=== PATIENT | female | born 1990 | race American Indian/Alaskan Native ===

== ENCOUNTER 2017-02-18 16:48 | Emergency (ER) | payer SELFPAY ==
[2017-02-18 16:56] VITALS: BP 149/76; PULSE 72; TEMP 98; BMI 26.7
--- NOTE | 2017-02-18 17:29 | PDOC ---
History of Present Illness - General Chief Complaint: Pain Stated Complaint: PAIN Time Seen by Provider: 02/18/17 17:12 History Source: Patient Exam Limitations: No Limitations - History of Present Illness Initial Comments: 02/18/17 17:23 CC now painful bump to right wrsit x 1 yuears; also infection ingrown hair left arm x 2 days Timing/Duration: getting worse Severity: mild Associated Symptoms: denies: cough, fever/chills, nausea/vomiting Past History - Past Medical History Allergies/Adverse Reactions: Allergies Allergy/AdvReac Type Severity Reaction Status Date / Time No Known Allergies Allergy Verified 02/18/17 16:54 Home Medications: Ambulatory Orders NK [No Known Home Medication] 02/18/17 Suicide Attempt (Hx): No Other medical history: DENIES. - Psycho/Social/Smoking Cessation Hx Anxiety: No Suicidal Ideation: No Smoking History: Never smoked Hx Alcohol Use: Yes Drug/Substance Use Hx: No Substance Use Type: Alcohol Review of Systems - Review of Systems Constitutional: No: Chills, Fever, Malaise HEENTM: Yes: Symptoms Reported Respiratory: Yes: Symptoms reported, Cough Integumentary: Yes: Lesions (left upper forearm), Lumps (right wrist) *Physical Exam - Vital Signs Last Vital Signs Temp Pulse Resp BP Pulse Ox 98 F 72 18 149/76 99 02/18/17 16:54 02/18/17 16:54 02/18/17 16:54 02/18/17 16:54 02/18/17 16:54 - Physical Exam General Appearance: Yes: Appropriately Dressed. No: Apparent Distress HEENT: positive: TMs Normal, Pharynx Normal Neck: positive: Supple. 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 negative: Sensory Deficit Medical Decision Making - Medical Decision Making 02/18/17 17:28 will treat left arm lesion as cellulitis with bactrim; will refer to plastic for evaluation of ganglion cyst *DC/Admit/Observation/Transfer Diagnosis at time of Disposition: Ganglion cyst of dorsum of right wrist, Cellulitis of left upper extremity - Discharge Dispostion Disposition: HOME Condition at time of disposition: Stable Admit: No - Referrals Referrals: Radames Briscoe [Primary Care Provider] - Darryl Power MD [Staff Physician] - - Patient Instructions Additional Instructions: see plastic surgeon for ganglion cyst right wrist; warm soaks to left arm infection, start Bactrim; wound check 2-3 days
== END 2017-02-18 17:41 | disposition home or self-care (01) ==
LOC: JERFT 16:48 → SUPCPDRO 16:48 → JERFT 17:41
DX: M67.431 Ganglion, right wrist (principal); L03.114 Cellulitis of left upper limb
CPT/HCPCS: 99281-25